=== PATIENT | male | born 1965 | race Caucasian/White ===

== ENCOUNTER 2020-08-18 18:33 | Inpatient (IN) | payer OTHER ==
[~2020-08-18] VITALS: Ht 177.8 cm; Wt 131.5 kg
[~2020-08-18 18:33] MED LIST: ADULT LOW DOSE81 MG PO; AMITRIPTYLINE H25 MG PO; ARMOUR THYROID60 MG PO; CALCIUM600 MG PO; DAILY MULTIPLE1 EACH PO; FENOFIBRATE160 MG PO; FISH OIL 1,0001 EAC1 PO; FISH OIL500 MG PO; GABAPENTIN300 MG PO; GLYBURIDE5 MG PO; HYDROCODON-ACE1 EA11 PO; IBUPROFEN200 MG PO; IBUPROFEN400 MG PO; JANUMET 50-5001 EACH; JANUMET 50-5001 EACH PO; JANUVIA100 MG PO; LIPITOR80 MG PO; LISINOPRIL5 MG PO; MELATONIN5 M2 PO; METFORMIN HCL1000 MG PO; METOPROLOL SUCC25 MG PO; METOPROLOL TART25 MG PO; NAPROXEN SODIU220 MG PO; NORCO 5-325 TA1 EACH PO; NORCO 7.5-3251 EACH PO; ONDANSETRON HCL4 MG PO; ONDANSETRON ODT4 MG SL; PERCOCET 5-3251 EACH PO; PYRIDIUM200 MG PO; SYNTHROID150 MCG PO; TRAMADOL HCL50 MG PO; VIAGRA100 MG PO; VITAMIN D250000 UNIT PO; VITAMIN D350000 UNIT PO; VITAMIN D5000 UNIT PO; ZETIA10 MG PO
--- NOTE | 2020-08-18 22:06 | NUR ---
2119 PATIENT ARRIVED TO THE UNIT. TRANSFERED INDEPENDENTLY TO THE BED. TOLERATING 2L NC. DRY COUGH NOTED, PATIENT REPORTS FEELING SOB WHEN COUGHING AND SLIGHT CHEST PAIN. OTHERWISE HE FEELS JUST TIRED. LUNG SOUNDS ARE CLEAR WITH SOME CRACKLES IN THE RLL. MD IN TO SEE PATIENT. RT SETTING UP CPAP. PATIENT FAILED ROOM AIR TRIAL AND KEPT ON 2L NC. PATIENT ASKING FOR FOOD. PROFESSIONAL SKATER CALLED.
--- NOTE | 2020-08-18 22:44 | NUR ---
PATIENT PROVIDED WITH FOOD. IV FLUIDS AND REMDESIVIR STARTED. PATIENT TOLERATING 2L NC. REQUESTING COUGH MEDICATIONS. NO OTHER NEEDS AT THIS TIME.
--- NOTE | 2020-08-19 | NUR ---
PATIENT UP TO THE BSC. VOIDS AND HAS LIQUID STOOL. PATIENT APPEARS MORE SOB WITH ACTIVITY. O2 SATS 86% ON 2L NC. SWITCHED TO CPAP ONCE IN BED WITH 4L BLEED IN. PATIENT RECOVERED AFTER SEVERAL MINS BUT WAS COUGHING FREQUENTLY. PATIENT TOLERATED CPAP FOR ABOUT 30 MINS THEN TOOK IT OFF. BACK TO 2L NC.
--- NOTE | 2020-08-19 02:00 | NUR ---
PATIENT UP TO BSC. TOTRATED TO 4L NC FOR ACTIVITY. PATIENT TOLERATED BETTER THIS TIME. VS STABLE. ORAL TEMP WNL. PATIENT DIAPHORETIC. TOWEL PROVIDED PER REQUEST. IV FLUIDS PER ORDER, SITE WNL. PATIENT CONTINUES TO HAVE DRY COUGH.
--- NOTE | 2020-08-19 03:15 | NUR ---
PATIENT [place] [facility] [place] LIMITED ASSSIT. PATIENT TOLERATED WELL. CONTINUES ON 4L NC. NO AGREEABLE TO USING CPAP AT THIS TIME.
--- NOTE | 2020-08-19 05:30 | NUR ---
PATIENT RESTING IN BED WATCHING TV. MORNING LABS DRAWN. PATIENT HAS BEEN UP INDEPENDENTLY TO THE [facility] TO VOID. GOOD URINE OUTPUT. CONTINUES TO BE SOB WITH ACTIVITY AND TACHYPNEIC, RR 30'S AT REST. 4L NC WITH O2 SATS LOW 90'S%. PATIENT REPORTS FEELING TIRED. DENIES PAIN OR GI UPSET. LOOKING FORWARD TO BREAKFAST. IV FLUIDS CONTINUE PER ORDER. CRACKLES NOTED IN CARLOS LOWER LOBES. NOTE SENT TO .
[2020-08-19] MEDS ORDERED: TRULICITY1.5 MG/0.5 SUB-Q (07:27)
[2020-08-19] MEDS ORDERED: VASCEPA1 GM PO (07:28)
[2020-08-19] MEDS ORDERED: FARXIGA10 MG PO (07:28)
[2020-08-19] MEDS ORDERED: LOSARTAN POTAS100 MG PO (07:29)
--- NOTE | 2020-08-19 09:05 | NUR ---
PT IS SLOW TO RESPOND BUT IS ALERT AND ORIENTED X3. HE WAS ABLE TO ORDER HIS OWN BREAKFAST AND SIT UP AT THE BEDSIDE TO EAT. HE IS ON 5L NASAL CANULA 94% SP02. WITH ACTIVITY 02 DECREASES BUT IT IS ABLE TO GO BACK TO NORMAL LIMITS QUIKLY. DOES NOT REPORT ANY PAIN OR NAUSEA AT THIS TIME. CALL LIGHT WITH IN REACH. PATIENT DESIRES A SHOWER LATER.
--- NOTE | 2020-08-19 11:26 | NUR ---
PATIENT CONTINUES TO PULL OFF CPAP MASK. O2 AT 4 L NC APPLIED. WILL CONTINUE TO MONITOR O2 SATS AND WORK OF BREATHING.
--- NOTE | 2020-08-19 11:37 | NUR ---
PT WAS ABLE TO AMBULATE TO THE BEDSIDE COMMODE AND VOID INDEPENDENTLY. PT WAS PROVIDED WITH SHAVING SUPPLIES TO PERFORM FACIAL CARE ON HIS OWN, WELL SHOWER SUPPLIES. HE IS ABLE TO AMBULATE TO THE RESTROOM ON HIS OWN. GIVEN VERBAL INSTRUCTIONS ON HOW TO USE THE CALL LIGHT IN THE SHOWER AND TO KEEP HIS NASAL CANULA ON AT ALL TIMES DURING HIS ACTIVITIES. NC IS AT 4L SP02 95%. LINENS CHANGED. PTS CLOTHES PLACED IN PERSONAL BELONGINGS BAG BY THE COUCH IN ROOM. IVS WERE COVERED WITH GLOVES AND COBAN TO PREVENT SOAKING WHILE IN THE SHOWER. PT WAS COOPERATIVE AND WAS VERBALLY INSTRUCTED TO LET US KNOW WHEN HE WAS HEADED BACK TO BED BY USING HIS CALL LIGHT. PT RESPONDED "OKAY".
--- NOTE | 2020-08-19 12:00 | NUR ---
PT FOUND BACK IN BED, DID NOT USE HIS CALL LIGHT TO ALERT US OF HIS SHOWER COMPLETION. PT FATIGUED AND INCREASED SOB AFTER SHOWER ACTIVITY. PT IS SITTING UP IN BED. NC 4L, SP02 AT 95%. PT WAS ABLE TO ORDER HIS LUNCH INDEPENDENTLY. PT ASKED TO WASH HIS HANDS AFTER REMOVAL OF GLOVES AND COBAN. HE STOOD UP AT THE SINK IN ROOM AND AMBULATED WELL BACK TO BED. CALL LIGHT WITHIN REACH. PT DENIES ANY PAIN OR NAUSEA AT THIS TIME. NO ADDITIONAL NEEDS AT THIS TIME.
--- NOTE | 2020-08-19 15:17 | EKG ---
[facility] [address] [facility] [place], [place] [address] Signed Normal sinus rhythm Normal ECG No previous ECGs available Confirmed by SHARRON CHILDERS DO ([id number]) on 08/19/2020 3:16:46 PM Electronically Signed By: SHARRON CHILDERS DO 08/19/20 1517 PATIENT NAME: HARPER MEYER Electrocardiogram DATE OF : 61 PHYSICIAN: SHARRON CHILDERS DO REPORT #: [id number] REPORT IS CONFIDENTIAL AND NOT TO BE RELEASED WITHOUT AUTHORIZATION
--- NOTE | 2020-08-19 17:45 | NUR ---
PT WAS ABLE TO AMBULATE INDEPENDENTLY DOWN THE HALLWAY, WHILE WEARING A MASK. SBA WITH STAFF IN FULL PPE GEAR DUE TO COVID PERCAUTIONS. PT HAD NC 5L WHILE WALKING DOWN THE HALLWAY TO VISIT HIS , AND ALSO WHILE IN HER BEDROOM AND BACK. PT WAS STEADY AND DID NOT SEEM TOO FATIGUED WHEN RETURNING BACK TO BED. INCREASED SOB BUT DECREASED AT REST. PT SEEMED MORE INTERACTIVE AND ENGAGED IN CONVERSATION. HE REPORTED A WORSENING COUGH, GAVE PRN MEDICATION FOR IT. PT IS SITTING AT BED SIDE. CALL LIGHT WITH IN REACH.
--- NOTE | 2020-08-19 19:01 | NUR ---
PT IS LAYING IN BED. NC 5L SP02 95%. PT WAS ABLE TO ORDER DINNER INDEPENDENTLY. DINNER PLACED ON BEDSIDE TABLE. DENIES ANY PAIN OR NAUSEA AT THIS TIME. COUGHING SYMPTOMS ARE STILL PRESENT, WAS NOTIFIED HIS NEXT PRN WOULD BE ADMINISTERED CLOSER TO 1999. PT IS ABLE TO AMBULATE TO BEDSIDE COMMODE AND VOID. NO ADDITIONAL NEEDS AT THIS TIME.
--- NOTE | 2020-08-19 20:00 | NUR ---
PUTTING CPAP ON FOR SLEEP.
--- NOTE | 2020-08-19 21:30 | NUR ---
02 NOT BLED INTO CPAP SO SATS DID DIP TO MID 80'S, 02 4 L NC PLACED AND SATS UP TO 90'S. ROBUTSSIN GIVEN FOR DRY COUGH. DID STAND AT BEDSIDE TO VOID AND MARISSA WELL. HE MEDS GIVEN.
--- NOTE | 2020-08-20 00:03 | NUR ---
SLEEPING WITH CPAP IN PLACE. SATS 88-92%.
--- NOTE | 2020-08-20 02:00 | NUR ---
PT CONT TO SLEEP WITH CPAP IN PLACE.
--- NOTE | 2020-08-20 03:35 | NUR ---
AWAKENED FROM DEEP SLEEP. SPOKE TO PT ABOUT REQUIRING 02 BEING BLED INTO CPAP. RR INCREASES WITH MILD EXERTION OF TURNING IN BED.
--- NOTE | 2020-08-20 05:55 | NUR ---
PT CONT TO SLEEP WITH CPAP WITH 4L [address] SATS 95%.
--- NOTE | 2020-08-20 07:14 | NUR ---
AWAKE, REQUESTING TO BE ON 02 NOW THAT IS OFF CPAP. ALSO GIVEN ROBITUSSIN PER REQUEST FOR DRY COUGH. STATES NEEDS TO BE DISCHARGED SOON, EXPLAINED WAS STILL REQUIRING OXYGEN AND BECAME SOB EASILY WITH EXERTION. ALSO REQUIRING 3 MORE DOSES OF REMDEISVER. PT SEEMED TO UNDERSTAND.
--- NOTE | 2020-08-20 09:00 | NUR ---
PT WAS ALERT AND LAYING IN BED. PT DOES NOT REPORT ANY PAIN OR NAUSEA. STATES HIS CAUGHING HAS IMPROVED BUT WOULD LIKE MEDICATION FOR IT WHEN POSSIBLE. PT WAS ABLE TO AMBULATE AND VOID AT THE BEDSIDE COMMODE, SLIGHT SOB AFTER ABULATORY ACTIVITY. PT SITTING UP AT BEDSIDE. CALL LIGHT WITHIN REACH.
--- NOTE | 2020-08-20 13:33 | NUR ---
PT IS SITTING UP AT THE BED. DOES NOT REPORT ANY PAIN OR NAUSEA. SLOW TO REPSOND BUT MORE ENGAGED IN CONVERSTATION. SPOKE TO ME ABOUT HIS DAUGHTER. STATED HIS HANDS HAVE BEEN DRY, HE WAS PROVIDED WITH LOTION. CALL LIGHT WITHIN REACH. ALL QUESTIONS ANSWERED.
--- NOTE | 2020-08-20 18:00 | NUR ---
PT IS AWAKE, AND SITTING AT THE BEDSIDE. PT DENIES ANY PAIN OR NAUSEA. PT ORDERED HIS DINNER INDEPENDENTLY. SLOW TO RESPOND. COUGH SYMPTOMS INCREASE WHEN TRYING TO HOLD CONVERSATION. PT IS ABLE TO AMBULATE AND VOID USING THE BEDSIDE COMMODE. CALL LIGHT WITHIN REACH.
--- NOTE | 2020-08-20 20:41 | NUR ---
WATCHING TV. NO C/O, BUT DID TAKE ROBITUSSIN FOR COUGH. HS MEDS GIVEN. CPAP READY FOR WHEN PATIENT USES IT FOR SLEEP
--- NOTE | 2020-08-20 23:13 | NUR ---
SLEEPING WITH CPAP IN PLACE. SAT 94%
--- NOTE | 2020-08-21 01:26 | NUR ---
SLEEPING WITH CPAP IN PLACE.
--- NOTE | 2020-08-21 04:31 | NUR ---
CONT TO SLEEP WITH CPAP IN PLACE. SAT 93%.
--- NOTE | 2020-08-21 05:00 | NUR ---
AWAKENS EASILY. HAS BEEN WEARING HOME CPAP WITH 02 BLED IN ALL NIGHT WITH SATS 93-95%. GETS UP TO VOID TO BSC ON OWN.
--- NOTE | 2020-08-21 09:00 | NUR ---
PT AWAKE IN BED THIS AM. PT C/O INCREASED COUGHING STATES IT "FEELS LIKE A TICKLE IN MY THROAT AND I JUST START HACKING". DENIES COUGHING UP SPUTUM. ROBITUSSIN GIVEN. CBG 272, 8 UNITS OF HUMALOG GIVEN, 3 SCHEDULED, 5 SLIDING SCALE. LUNG SOUNDS CLEAR BUL, DIMINISHED BLL. PT REPORTS FEELING SLIGHTLY SOB W/ EXERTION. RADIAL AND PEDAL PULSES +2. RFA AND LFA IV'S PATENT AND FLUSH WELL, NO REDNESS OR SWELLING AT SITE. CMP LAB DRAWN FROM RAC. PT INDEPENDENT IN ROOM AND ABLE TO STAND TO VOID IN BSC, EMPTIED OF 700 MLS URINE. VSS. CALL LIGHT IN REACH. BREAKFAST TRAY PROVIDED. PT WITHOUT FURTHER NEEDS AT THIS TIME.
[2020-08-21] MEDS ORDERED: VITAMIN D21250 MCG PO (10:28)
[2020-08-21] MEDS ORDERED: GLIMEPIRIDE4 MG PO (11:44)
[2020-08-21] MEDS ORDERED: PIOGLITAZONE HC30 MG PO (11:45)
[2020-08-21] MEDS ORDERED: ROPINIROLE HCL1 MG PO (11:45)
[2020-08-21] MEDS ORDERED: GLIPIZIDE5 MG PO (11:45)
[2020-08-21] MEDS ORDERED: ASPIRIN81 MG PO (11:54)
--- NOTE | 2020-08-21 11:54 | NUR ---
MED REC COMPLETE
--- NOTE | 2020-08-21 12:30 | NUR ---
CBG 267. SCHEDULED HUMALOG W/ MEALS INCREASED FROM [address] CHILDERS. TOTAL OF 11 UNITS OF HUMALOG GIVEN. BSC EMPTIED OF 225 MLS OF YELLOW URINE. PT BACK TO BED. PT EDUCATED ON SELF-PRONING AND HAS BEEN UNDERSTANDING, TOLERATING WELL. REMAINS ON 4 L NC SATING 92-94%. CALL LIGHT IN REACH. WATER REFRESHED. PT DENIES FURTHER NEEDS.
--- NOTE | 2020-08-21 13:54 | NUR ---
PATIENT NOT AVAILABLE FOR PHONE AT THIS TIME. WILL CHECK IN LATER.
--- NOTE | 2020-08-21 14:00 | NUR ---
O2 ALARMING. SATURATIONS 81%, PT UP TO BSC TO VOID AND NC IS OFF AND PT FEELS SOB. 4 L O2 VIA NC PUT BACK ON PT AND INSTRUCTED PT TO PRACTICE DEEP BREATHING. PT DENIES NEED, HE STATES BREATHING DEEPLY CAUSES HIM TO COUGH. PT REPORTS TESSLON PERLES GIVEN FOR HACKING COUGH EARLIER DOES NOT SEEM TO BE HELPING AND IS REQUESTING ROBITUSSIN, GIVEN. VSS. URINE OUTPUT IS QUATITY SUFFICIENT. PT IS GETTING PHONE CALL ON CELL AND DENIES FURTHER NEEDS. ICE WATER REFRESHED AND CALL LIGHT IN REACH.
--- NOTE | 2020-08-21 14:43 | NUR ---
DUE TO PRECAUTIONS, I AM UNABLE TO VISIT WITH PT AT THIS TIME. WILL CONTINUE TO FOLLOW
--- NOTE | 2020-08-21 15:21 | NUR ---
SPOKE WITH PATIENT BY PHONE. PATIENT IS VERY SOB AND COUGHS OFTEN. KEPT CONVERSATION SHORT. PATIENT LIVES WITH WHO IS ALSO ILL WITH COVID IN OUR CCU. THE HOME ALSO HAS OTHER ADULTS LIVING IN IT. 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 HE USES NO DME. HAS PCP. HE PLANS TO DISCHARGE BACK HOME. HIS MAIN CONCERN IS THAT HE MIGHT NEED FINANCIAL HELP HE WILL HAVE NO INCOME LONG HE CANNOT WORK. DISCUSSED I WILL LOOK INTO RESOURCES ABOUT THIS. PATIENT WAS COUGHING OFTEN BY THEN AND I LET HIM GO. I SPOKE WITH OUR CHW WHO STATES THERE MIGHT BE SOME RESOURCES AVAILABLE AND SHE WILL LOOK INTO IT TOMORROW. CM WILL CONTINUE TO FOLLOW.
--- NOTE | 2020-08-21 16:00 | NUR ---
PT STILL HAS DRY HACKING COUGH. NOT YET TIME FOR ROBMANDA OR NICKIE CONDE. OFFERED HOT TEA AND PT REFUSED SAYING HE DOES NOT LIKE WARM DRINKS. SCHEDULED GABAPENTIN GIVEN. PT DENIES PAIN OR NAUSEA. VSS. PT NOTIFIED HE WILL BE TRANSFERRING TO MED SURG ROOM 118. PT IS WITHOUT COMPLAINT. BELONGINGS PACKED AND LICENSE PUT IN HAT IN PT BELONGING BAG PER PT REQUEST. ASSESSMENT SHOWS NO ACUTE CHANGES FROM THIS MORNING. RR REMAIN AT 24 AND COUGH HAS SLIGHTLY IMPROVED W/ MEDICATIONS. REPORT CALLED TO [facility]ATION ASSISTANT.
--- NOTE | 2020-08-21 17:00 | NUR ---
PT TRANSFERED TO MED SURG UNIT VIA HOSPITAL BED WITH BELONGINGS IN HAND. VITALS TAKEN. ASSESSMENT COMPLETE, PT CONTINUES TO HAVE DRY COUGH PER REPORT FROM CCU. PT DEMONSTRATING FLAT AFFECT AND IRRITATION REGARDING "INCONVENIENCE" OF TRANSFER. ATTEMPTED TO REASSURE PT THAT TRANSFER FROM CCU MEANS IMPROVEMENT IN HIS CONDITION. REVIEWED PLAN OF CARE WITH PT. ORIENTED TO ROOM, CALL LIGHT IN REACH.
--- NOTE | 2020-08-21 17:51 | NUR ---
ACCUCHECK DONE, SS INSULIN AND SCHEDULED MEDICATIONS ADMINISTERED. DINNER ORDERED. ALL REQUESTS COMPLETED. PT REMAINS SLIGHTLY AGITATED AT THIS TIME. ALLOWED TO REST UNDISTURBED. CALL LIGHT IN REACH.
--- NOTE | 2020-08-21 18:20 | NUR ---
ROUNDED ON PATIENT, RESTING IN BED WATCHING TV. LEFT UNDISTURBED AT THIS TIME
--- NOTE | 2020-08-21 19:10 | NUR ---
REPORT RECEIVED FROM YOU ESPARZA. pt RESTING IN BED. 4L OXYGEN BY NC IN PLACE, SPO2 WNL. TELE 6 WITH CPOX ON.
--- NOTE | 2020-08-21 22:10 | NUR ---
pt AWAKE, RESTING IN BED, RR 24. SPO2 WNL WITH 4L OXYGEN BY NC IN PLACE. IV SITES FLUSHED WNL, IV REMDESIVIR INFUSING ORDERED. URINE EMPTIED FROM BSC. LUNG SOUNDS DIMINISHED THROUGHOUT ALL LOBES, ASSESSMENT COMPLETE. OCCASIONAL DRY COUGH, PRN COUGH MEDICATION ADMINISTERED REQUESTED BY PATIENT. CPAP APPLIED WITH 4L OXYGEN BY NC BLED IN. CALL LIGHT WITHIN REACH. ICE WATER PROVIDED.
--- NOTE | 2020-08-22 00:43 | NUR ---
pt RESTING IN BED. SPO2 91% WITH CPAP ON, 4L OXYGEN BLED IN. HR 56. CPOX IN PLACE.
--- NOTE | 2020-08-22 02:53 | NUR ---
CHECKED ON pt. RESTING IN BED WITH CPAP ON, 4L OXYGEN BLED IN . SPO2 93%. LIGHTS OFF IN ROOM.
--- NOTE | 2020-08-22 04:12 | NUR ---
SPO2 NOTED 83-85% ON TELE 6. OXYGEN TITRATED TO 6L BLED INTO CPAP. pt SLEEPING, BREATHING UNLABORED. SPO2 INCREASES TO 87-88%. RT DULCE IN ROOM TO ASSESS CPAP.
--- NOTE | 2020-08-22 06:00 | NUR ---
pt SLEEPING, AWAKENS TO VOICE. pt REQUESTING NC AT THIS TIME. 6L NC IN PLACE, SPO2 95%. AFEBRILE. SCHEDULED MEDICATION ADMINISTERED. URINE EMPTIED FROM BSC. ICE WATER PROVIDED. ASSESSMENT COMPLETE. CALL LIGHT IN REACH.
--- NOTE | 2020-08-22 06:30 | NUR ---
SPO2 85-88% WITH 6L OXYGEN BY NC IN PLACE. RT DULCE NOTIFIED, TO SWITCH PATIENT TO OXYMASK.
--- NOTE | 2020-08-22 06:45 | NUR ---
pt RESTED WELL THIS SHIFT. HOME CPAP IN PLACE, TITRATED TO 6L OXYGEN BLED IN TO MAINTAIN SATURATIONS >90%. INDEPENDENT TO BSC FOR QS VOIDS. IV SITES SL.
--- NOTE | 2020-08-22 07:28 | NUR ---
REPORT RECEIVED FROM SANDRA ORTA. PT RESTING IN BED WITH EYES CLOSED. LEFT UNDISTURBED AT THIS TIME. WILL CONTINUE PLAN OF CARE.
--- NOTE | 2020-08-22 08:00 | NUR ---
ACCUCHECK COMPLETE, PT CBG 271. BREAKFAST ORDER RECEIVED.
--- NOTE | 2020-08-22 08:50 | NUR ---
Scheduled medications administered, SS insulin given, PRN tylenol for "toothache type pain" and Robitussin for cough administered as well. Assessment complete, pt has coarse lung sounds and frequent shallow breaths, reporting SOB. On 6L of O2 via oxymask, switched to NC for breakfast. Pt SPO2 ranging from 90-95%. Dry, hacking nonproductive cough noted. Pt reports no other needs, call light in reach.
--- NOTE | 2020-08-22 10:15 | NUR ---
Rounded on patient, fresh water provided. No needs at this time.
--- NOTE | 2020-08-22 11:15 | NUR ---
Spoke with pt briefly. Feels he is doing better. Breathing is labored with [address] Plans on dc to home when treatment is complete.
--- NOTE | 2020-08-22 11:45 | NUR ---
CBG checked and SS and scheduled insulin administered. Pt had large BM in BSC. On 4L O2 via oxymask at this time, SPO2 93%. pt requests phone plugged in. States he will call dietary with lunch order when ready.
--- NOTE | 2020-08-22 14:17 | NUR ---
PT IS UNDER PRECAUTIONS, UNABLE TO VISIT IN PERSON. WILL TRY TO CONTAT BY PHONE
--- NOTE | 2020-08-22 14:35 | NUR ---
Vitals and I/O's completed. New IV started on R forearm as R hand IV leaking, IV medication due this evening. Assessment complete. Pt states not ready to order dinner yet.
--- NOTE | 2020-08-22 17:35 | NUR ---
Scheduled medications and SS insulin administered. Vitals and I/Os completed. Water and diet soda provided per pt request, he states he will call dietary with dinner order. Currently on 4L 02, SPO2 at 95%. Pt states no further needs at this time. Call light in reach
--- NOTE | 2020-08-22 19:15 | NUR ---
REPORT RECEIVED FROM OYU ESPARZA. COVID ISOLATION IN PLACE. SPO2 90% WITH 4L OXYGEN BY OXYMASK IN PLACE. ASSUMED CARE OF pt.
--- NOTE | 2020-08-22 20:10 | NUR ---
pt RESTING IN BED, SPO2 WNL WITH 4L OXYGEN BY OXYMASK IN PLACE. ASSESSMENT COMPLETE. LUNG SOUNDS DIMINISHED THROUGHOUT ALL LOBES, pt STATES "SOME SHORTNESS OF BREATH". BREATHING IS UNLABORED, RR 24 AT REST. URINE EMPTIED FROM BSC. ICE WATER PROVIDED. SCHEDULED MEDICATIONS ADMINISTERED. CALL LIGHT IN REACH. IV SITE FLUSHED AND IV REMDESIVIR INFUSING.
--- NOTE | 2020-08-22 21:13 | NUR ---
CALL LIGHT ANSWERED, IV REMDESIVIR COMPLETE. IV SL WNL. pt SITTING UP IN BED EATING FRUIT, OXYMASK ON HEAD, SPO2 88%. WITH 4L OXYGEN SPO2 INCREASES TO 95%. CALL LIGHT IN REACH. NO ADDITIONAL REQUESTS.
--- NOTE | 2020-08-22 22:37 | NUR ---
IN TO CHECK ON pt SPO2 DROPS TO 85% ON TELE 6 CPOX MONITOR. pt APPLYING CPAP AT THIS TIME WITH 6L OXYGEN BLED IN FOR SLEEP, SPO2 93%. pt TURNING LIGHTS OFF IN ROOM. CALL LIGHT IN REACH.
--- NOTE | 2020-08-23 00:58 | NUR ---
CHECKED ON pt. RESTING IN BED WITH HOME CPAP ON, 6L OXYGEN BLED IN, SPO2 92%. pt LYING ON BACK. LIGHTS OFF IN ROOM.
--- NOTE | 2020-08-23 03:21 | NUR ---
pt RESTING IN BED, HOME CPAP ON. SPO2 93% WITH 6L OXYGEN BLED INTO CPAP.
--- NOTE | 2020-08-23 05:35 | NUR ---
pt RESTED WELL THIS SHIFT. 6L OXYGEN BLED INTO HOME CPAP WITH SLEEP TO MAINTAIN SATURATIONS >92%. 4L OXYGEN BY OXYMASK WHILE AWAKE. TELE 6 CPOX ON. INDEPENDENT TO BSC. IV KAYCEE.
--- NOTE | 2020-08-23 06:12 | NUR ---
pt RESTING IN BED AWAKE. VSS. AFEBRILE. 4L OXYGEN BY OXYMASK IN PLACE. ASSESSMENT COMPLETE. LUNG SOUNDS COARSE RLL. pt WITH HACKING COUGH. PRN COUGH MEDICATION ADMINISTERED. URINE EMPTIED FROM BSC. TRAY TABLE CLEARED, TRASH EMPTIED. CALL LIGHT WITHIN REACH.
--- NOTE | 2020-08-23 07:30 | NUR ---
this rn received report from fabrizio fuller. pt appears to be resting with o2 noted on the monitor
--- NOTE | 2020-08-23 08:00 | NUR ---
THIS RN IN PT SROOM TO GET PTS BLOOD SUGAR, GIVE PT HIS MORNING MEDS AND DO PTS MORNING ASSESSMENT. PT SITTING UP ON EDGE OF BED AND STATES THAT HE IS DOING OKAY THIS AM. PT STATES THAT HE KEEPS HAVING COUGHING FITS. PT STATES THAT HE MIGHT BE GETTING DISCHARGED TODAY AND THAT HIS BOSS WANTS HIM BACK TO WORK ON FRIDAY- THIS RN DISCUSSED WITH PT HE MIGHT NEED TO QUARENTINE FOR LONGER THAN THAT. PT HAS NO OTHER CONCERNS AT [facility] TIME
--- NOTE | 2020-08-23 08:00 | NUR ---
Received 02 qualifier for Awaiting rx and note to send chart to [employer] for 02 delivery.
--- NOTE | 2020-08-23 09:10 | NUR ---
Left message for Rosemarie from [facility] and updated pt will be dicharging today along with his . Will now require 2 concentrators for the home. Spoke with Janna and she will pass infor along to Nyla.
--- NOTE | 2020-08-23 11:00 | NUR ---
Faxed face sheet, 02 qualifier, Rx for 02, H&P, and note from physician to [facility] for 02 concentrator. Called and spoke with Nyla. She did not receive previous message, but will call her test car driver for second concentrator as he had and extra with him. Spoke with Siva and updated 02 will be set up in the home and [facility] will bring portable 02 tank for use for pt to go home. Pt is awaiting to see Dr. Fraga. Updated he will be in shortly.
[2020-08-23] MEDS ORDERED: BENZONATATE100 MG PO (11:40)
[2020-08-23] MEDS ORDERED: DECADRON6 MG PO (11:41)
--- NOTE | 2020-08-23 13:51 | NUR ---
INFORMED PT IS TO DC TODAY, WILL WORK TO CONNECT DUE TO PRECAUTIONS
== END 2020-08-23 13:45 | disposition home or self-care (01) | DRG 177 ==
LOC: ED 18:33 → CCU 20:30 → MS 08-21 16:45
PROVIDERS: ADMIT Student in an Organized Health Care Education/Training Program; ATTEND Student in an Organized Health Care Education/Training Program
PROC: XW033E5 Introduction of Remdesivir Anti-infective into Peripheral Vein, Percutaneous Approach, New Technology Group 5 (ICD-10-PCS; principal; 2020-08-18)
PROC: 5A09357 Assistance with Respiratory Ventilation, Less than 24 Consecutive Hours, Continuous Positive Airway Pressure (ICD-10-PCS; 2020-08-19)
DX: U07.1 COVID-19 (principal); J12.82 Pneumonia due to coronavirus disease 2019; J12.81 Pneumonia due to SARS-associated coronavirus; J96.01 Acute respiratory failure with hypoxia; E11.649 Type 2 diabetes mellitus with hypoglycemia without coma; I10 Essential (primary) hypertension; E11.65 Type 2 diabetes mellitus with hyperglycemia; T38.0X5A Adverse effect of glucocorticoids and synthetic analogues, initial encounter; E66.9 Obesity, unspecified; E78.2 Mixed hyperlipidemia; G25.81 Restless legs syndrome; E03.9 Hypothyroidism, unspecified; G89.4 Chronic pain syndrome; Y92.239 Unspecified place in hospital as the place of occurrence of the external cause; Z87.442 Personal history of urinary calculi; Z79.899 Other long term (current) drug therapy; Z79.84 Long term (current) use of oral hypoglycemic drugs; Z79.82 Long term (current) use of aspirin
CPT/HCPCS: 71045; 80053; 81001; 83605; 85025; 85379; 94640; 94660; 94760; 94761; 97162; 99285-25; J1100; J1650; J1815; J7050; J7121; J8540; U0003

== ENCOUNTER 2022-03-26 09:55 | Day surgery (SDC) | payer OTHER ==
[~2022-03-26] VITALS: Ht 177.8 cm; Wt 152.3 kg
[~2022-03-26 09:55] MED LIST changes: +ASPIRIN81 MG PO; +BENZONATATE100 MG PO; +DECADRON6 MG PO; +FARXIGA10 MG PO; +GLIMEPIRIDE4 MG PO; +GLIPIZIDE5 MG PO; +LOSARTAN POTAS100 MG PO; +PIOGLITAZONE HC30 MG PO; +ROPINIROLE HCL1 MG PO; +TRULICITY1.5 MG/0.5 SUB-Q; +VASCEPA1 GM PO; +VITAMIN D21250 MCG PO
--- NOTE | 2022-03-26 11:33 | NUR ---
03/26/22 1133 Gail Teixeira 1125 PATIENT ARRIVES TO PACU SLEEPING. RESP EVEN AND UNLABORED, MASK AT 8 LITERS. 1127 PATIENT AWAKENS WITH VERBAL STIMULI. RESP EVEN AND UNLABORED, MASK OFF. 1130 PATIENT REPOSITIONS SELF TO BACK. AWAKE OFF/ON, BUT DROWSY.
--- NOTE | 2022-03-27 15:47 | OR ---
[facility] [address] [place], [place] [address] Signed DATE OF OPERATION: 03/26/2022 SURGEON: Apryl Oates MD PREOPERATIVE DIAGNOSIS: Colon screening. POSTOPERATIVE DIAGNOSIS: Normal colon to cecum. PROCEDURE: Total colonoscopy to cecum. ANESTHESIA: Intravenous sedation, propofol infusion; Barry Roy CRNA. INDICATIONS: This 56-year-old morbidly obese white male, BMI 47.8, is a patient of Dr. Calero. He underwent colonoscopy in 2013, which was said to be normal. He is quite obese at 333 pounds. He underwent cholecystectomy in the past as well as colonoscopy in [place] in 2002, which was said to be normal. He has no symptoms currently of bleeding, diarrhea or constipation. He has had other medical problems including need for BiPAP and ultimately CPAP device, diabetes mellitus, and history of myocardial infarction. He is admitted to undergo screening colonoscopy. He understands the risk of bleeding, infection, and perforation. Given his advanced ASA classification, propofol infusional sedation is recommended. FINDINGS: The prep was good. Complete colonoscopy was undertaken of the cecum. He had no polyps or diverticular formations that I could see. He had no colitis. DESCRIPTION OF PROCEDURE: The patient was brought to the endoscopy suite and placed in the lateral decubitus position, given intravenous sedation to the point of slurred speech and nystagmus. Propofol infusional technique was used by the short order fry cook. A digital rectal examination was found to be normal. An Olympus video colonoscope was passed in the rectum and manipulated throughout the colon ultimately intubating the cecum itself. The ileocecal valve and appendiceal orifice were normal. The scope was withdrawn from that point and examination throughout Electronically Signed By: APRYL OATES MD 03/27/22 1547 PATIENT NAME: HARPER MEYER OPERATIVE REPORT DATE OF : 61 REPORT #: [id number] PHYSICIAN: APRYL OATES MD PCP: YEISON CALERO MD REPORT IS CONFIDENTIAL AND NOT TO BE RELEASED WITHOUT AUTHORIZATION [facility] [address] [place], [place] [address] Signed showed no sign of diverticula, polyps, or other abnormality. Retroflexed view was normal as well. The scope was removed and the patient was taken to the recovery room in good condition. CONCLUDING DIAGNOSIS: Normal colon. No evidence of polyps. PLAN: Recommend repeat colonoscopy in 7 to 10 years, sooner if clinically indicated. He will return to the ongoing care of Dr. Yeison Calero. MD KARUNA Hogan/DARLINGL /[id number] cc: Yeison Calero MD Copies: YEISON CALERO MD ~ Electronically Signed By: APRYL OATES MD 03/27/22 1547 PATIENT NAME: HARPER MEYER OPERATIVE REPORT DATE OF : 61 REPORT #: [id number] PHYSICIAN: APRYL OATES MD PCP: YEISON CALERO MD REPORT IS CONFIDENTIAL AND NOT TO BE RELEASED WITHOUT AUTHORIZATION
== END 2022-03-26 12:00 | disposition home or self-care (01) ==
LOC: OPS 09:55 → DS 10:00 → OPS 10:45
PROVIDERS: ATTEND Surgery
PROC: 0DJD8ZZ Inspection of Lower Intestinal Tract, Via Natural or Artificial Opening Endoscopic (ICD-10-PCS; principal; 2022-03-26 10:45)
DX: Z12.11 Encounter for screening for malignant neoplasm of colon (principal); E66.01 Morbid (severe) obesity due to excess calories; Z68.42 Body mass index [BMI] 45.0-49.9, adult
CPT/HCPCS: J2704; J7121

== ENCOUNTER 2024-04-22 06:35 | Day surgery (SDC) | payer OTHER ==
[2024-04-05 08:35] VITALS: BP 110/67
[2024-04-08 07:09] VITALS: BP 143/69
[~2024-04-22] VITALS: Ht 177.8 cm; Wt 142.0 kg
[~2024-04-22 06:35] MED LIST changes: +CARAFATE1 GM PO; +CLOPIDOGREL75 MG PO; +IBLOOD GLUCOSE TEST STRIP 1 EA TEST VI PRN; +LACTATED RINGER'S 1,000 ML IV SCH; +LIDOCAINE HCL 1% 5 ML SDV INJ ONE; +MIDAZOLAM HCL 5 MG/5 ML VIAL IV PRN; +PANTOPRAZOLE SO40 MG PO; +PROTONIX40 MG PO; +VITAMIN B121000 MCG PO; +VITAMIN B12500 MCG PO; +fentaNYL citrate 100 MCG/2 ML VIAL IV PRN
[2024-04-22 06:50] VITALS: BP 148/59
[2024-04-22] MEDS ORDERED: LIDOCAINE HCL 1% 5 ML SDV INJ ONE (07:00)
[2024-04-22] MEDS ORDERED: IBLOOD GLUCOSE TEST STRIP 1 EA TEST VI PRN (07:00)
[2024-04-22] MEDS ORDERED: LACTATED RINGER'S 1,000 ML IV SCH (07:00)
[2024-04-22] MEDS ORDERED: propofoL 200 MG/20 ML VIAL ONE ×3 (08:13→08:37)
[2024-04-22] MEDS ORDERED: LIDOCAINE HCL 2% 5 ML SDV ONE (08:13)
[2024-04-22 09:21] VITALS: BP 141/61
--- NOTE | 2024-04-22 09:57 | OR ---
[facility] [address], [place] [address] Signed DATE OF OPERATION: 04/22/2024 SURGEON: Sasha Yañez MD PREOPERATIVE DIAGNOSES: 1. Gastric duodenal ulcers August 17, 2023. 2. Minimal distal esophagitis. 3. History of peptic ulcer disease. POSTOPERATIVE DIAGNOSIS: Stomach full of food. PROCEDURE: Esophagogastroduodenoscopy without biopsies. ESTIMATED BLOOD LOSS: None. 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 Apparently, he has had ulcers in the past. He said he has up to nine cardiac stents. He had cardiac stents placed eight months before coming to the office in January 2024. He also was using ibuprofen and ended up with a rather significant GI bleed. He went over to our [facility] where he spent an entire week. He is now off the aspirin and the NSAIDs. He has also had a history of a TIA. He is therefore back on his Plavix. The upper endoscopy revealed gastroduodenal ulcers. They are all less than or equal to 25 mm in diameter. They were more linear in the duodenum. He also had some minimal distal esophagitis. The consulting manager thought it would be paige to repeat the upper endoscopy in a week or so to make sure he is healing. He had been asked to see me as a local general surgeon here in [place], [place]. I had reviewed with him upper endoscopy. I gave him a pamphlet in that regard. He understands the nature of the test. There is risk including, but not limited to gas bloating, crampy abdominal pain, bleeding, perforation requiring surgery, and missed diagnosis. We do not need laxatives for upper endoscopies. He was thankful in that regard because he has been through several colonoscopies in his life. He on our preop sheet I had marked to stop Trulicity one week prior to the procedure. He stopped three days prior to the procedure but he stopped the Plavix 6 days prior to the procedure and sheet was marked for five days. He said he is no longer on the ibuprofen or aspirin. In addition, he is a very large man with significant sleep apnea requiring CPAP mask. He has a very round full face, heavy neck, chest and abdomen. Therefore, we asked for monitored anesthesia care Electronically Signed By: SASHA YAÑEZ MD 04/22/24 0957 PATIENT NAME: SALVADOR MEYER OPERATIVE REPORT DATE OF : 61 REPORT #: [id number] PHYSICIAN: SASHA YAÑEZ MD PCP: YEISON UGARTE MD REPORT IS CONFIDENTIAL AND NOT TO BE RELEASED WITHOUT AUTHORIZATION [facility] [address], [place] [address] Signed propofol infusion. He did require some preoperative blood work. We can see his renal function was off just a little bit. He is ever so slightly anemic. His mean cell volume is normal. He had expressed understanding and wished to proceed. He said his would take him home afterwards. DESCRIPTION OF PROCEDURE: Salvador was taken into our endoscopy suite and placed in a supine semi-recumbent position. A bite block was utilized for the case. He was given propofol infusion per our nurse foam cutting supervisor. The adult gastroscope was introduced and advanced under direct visualization of camera. As we entered the stomach over half of the stomach was full of half digested food. I made my way down to the proximal antrum. I could not see beyond that, but I could see the antrum, incisura and body of the stomach were unremarkable. Upon retroflexion of scope, I could see the cardia. He did not appear to have an obvious hiatal hernia. There was no blood in the stomach. The distal esophagus, middle esophagus, and upper esophagus were unremarkable. After this, the gas was suctioned out, the gastroscope removed. Salvador tolerated the procedure quite well. RECOMMENDATIONS: Salvador is welcome to call the office and reschedule his upper endoscopy. He might actually benefit from an entire day of clear liquid diet and even some laxatives to help clear his stomach. He has diabetes and on top of that he is using the Trulicity. Sasha Yañez MD ALB/MODL /[id number] cc: MD Yeison Jacobson MD Copies: SASHA YAÑEZ MD Electronically Signed By: SASHA YAÑEZ MD 04/22/24 0957 PATIENT NAME: SALVADOR MEYER OPERATIVE REPORT DATE OF : 61 REPORT #: [id number] PHYSICIAN: SASHA YAÑEZ MD PCP: YEISON UGARTE MD REPORT IS CONFIDENTIAL AND NOT TO BE RELEASED WITHOUT AUTHORIZATION [address] [address] Signed YEISON UGARTE MD ~ Electronically Signed By: SASHA YAÑEZ MD 04/22/24 0957 PATIENT NAME: SALVADOR MEYER ROYER OPERATIVE REPORT DATE OF : 61 REPORT #: [id number] PHYSICIAN: SASHA YAÑEZ MD PCP: YEISON UGARTE MD REPORT IS CONFIDENTIAL AND NOT TO BE RELEASED WITHOUT AUTHORIZATION
== END 2024-04-22 09:26 | disposition home or self-care (01) ==
LOC: DS 06:35
PROVIDERS: ATTEND Colon & Rectal Surgery
PROC: 0DJ08ZZ Inspection of Upper Intestinal Tract, Via Natural or Artificial Opening Endoscopic (ICD-10-PCS; principal; 2024-04-22 08:15)
DX: Z09 Encounter for follow-up examination after completed treatment for conditions other than malignant neoplasm (principal); E11.42 Type 2 diabetes mellitus with diabetic polyneuropathy; I25.10 Atherosclerotic heart disease of native coronary artery without angina pectoris; I25.2 Old myocardial infarction; I10 Essential (primary) hypertension; E78.5 Hyperlipidemia, unspecified; G47.33 Obstructive sleep apnea (adult) (pediatric); E03.9 Hypothyroidism, unspecified; D62 Acute posthemorrhagic anemia; E66.01 Morbid (severe) obesity due to excess calories; Z68.42 Body mass index [BMI] 45.0-49.9, adult; Z87.19 Personal history of other diseases of the digestive system; Z79.84 Long term (current) use of oral hypoglycemic drugs; Z79.890 Hormone replacement therapy; Z79.02 Long term (current) use of antithrombotics/antiplatelets; Z79.899 Other long term (current) drug therapy; Z95.5 Presence of coronary angioplasty implant and graft; Z90.49 Acquired absence of other specified parts of digestive tract; Z86.73 Personal history of transient ischemic attack (TIA), and cerebral infarction without residual deficits
CPT/HCPCS: 00731; J2003; J2704; J7121

== ENCOUNTER 2024-06-09 05:30 | Day surgery (SDC) | payer OTHER ==
[2024-05-31 09:30] VITALS: BP 110/62
[~2024-06-09] VITALS: Ht 177.8 cm; Wt 140.0 kg
[~2024-06-09 05:30] MED LIST changes: +FOLIC ACID0.4 MG PO; -IBLOOD GLUCOSE TEST STRIP 1 EA TEST VI PRN; -LACTATED RINGER'S 1,000 ML IV SCH; -LIDOCAINE HCL 1% 5 ML SDV INJ ONE; +NITROGLYCERIN0.4 MG SL
[2024-06-09 06:05] VITALS: BP 145/73
[2024-06-09] MEDS ORDERED: LIDOCAINE HCL 1% 5 ML SDV INJ ONE (07:00)
[2024-06-09] MEDS ORDERED: LACTATED RINGER'S 1,000 ML IV SCH (07:00)
[2024-06-09] MEDS ORDERED: IBLOOD GLUCOSE TEST STRIP 1 EA TEST VI PRN (07:00)
[2024-06-09] MEDS ORDERED: ENOXAPARIN SODIUM 40 MG/0.4 ML SYR SUB-Q SCH (07:00)
[2024-06-09] MEDS ORDERED: propofoL 200 MG/20 ML VIAL ONE (07:02)
--- NOTE | 2024-06-09 07:17 | NUR ---
PT NOT AVAILABLE FOR VISIT. PROVIDED PRAYER.
--- NOTE | 2024-06-09 07:42 | NUR ---
06/09/24 0742 Ranjana Capellan 0741-PATIENT ARRIVED TO PACU ON 8L MASK NONAROUSABLE LAYING SUPINE. ORAL AIRWAY IN PLACE. RR EVEN. SR. HR 60'S IVF INFUSING. PATIENT PLACED ON 6L MASK 100% ABDOMEN ROUND AND SOFT 9737-GLUCOSE LEVEL 108
[2024-06-09 08:11] VITALS: BP 135/77
--- NOTE | 2024-06-09 11:20 | OR ---
[facility] [address] [place], [place] [address] Signed DATE OF OPERATION: 06/09/2024 SURGEON: Sasha Yañez MD PREOPERATIVE DIAGNOSES: 1. Significant upper GI bleed with duodenal and antral ulcers in June of 2023. 2. Need for Plavix for his cardiac stents and transient ischemic attack. POSTOPERATIVE DIAGNOSES: 1. Moderate distal gastritis. 2. GE junction at 37 cm. PROCEDURE: EGD with CLOtest and multiple biopsies of the antrum. ESTIMATED BLOOD LOSS: None. INDICATIONS: Salvador is a 59-year-old obese diabetic gentleman with a history of severe sleep apnea and type 2 diabetes along with nine cardiac stents. Apparently, he has had a transient ischemic attack as well. It sounds like he has had an MA back in 2004. 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 He is on Plavix because of the TIA and the cardiac stents. He was taking a large amount of ibuprofen and ended up with a rather significant GI bleed. He was admitted to [facility]. He spent the entire week there. He is now off aspirin and NSAIDs. However, he needs to be maintained on the Plavix. The upper endoscopy revealed antral and duodenal ulcers. They were less than or equal to 25 mm in diameter. They were more or less linear in the duodenum. The religion teacher from our [facility] wanted to repeat the upper endoscopy in a few weeks to make sure everything continues to heal well. He had been asked to see me as a local general surgeon about an hour away. We brought him in a few weeks ago and unfortunately he had a lot of food in his antrum and I could not get through the antrum nor the pyloric channel. The proximal one-half of his stomach was unremarkable. We had reviewed this together in the office in followup. He actually volunteered to do a bowel prep to clean out his stomach and make sure the ulcers were healed. He told me this morning that he actually did two days of liquids and then did the bowel prep in the afternoon yesterday. He said it worked out very well. In the office, I once again gave him a brochure on upper endoscopy. We had reviewed it in detail. There is risk including, but not limited to gas bloating, crampy abdominal pain, bleeding, perforation requiring surgery, and missed diagnosis. Also because of his medical issues, his sleep Electronically Signed By: SASHA YAÑEZ MD 06/09/24 1120 PATIENT NAME: SALVADOR MEYER OPERATIVE REPORT DATE OF : 61 REPORT #: [id number] PHYSICIAN: SASHA YAÑEZ MD PCP: YEISON CALERO MD REPORT IS CONFIDENTIAL AND NOT TO BE RELEASED WITHOUT AUTHORIZATION [facility] [address] [place], [place] [address] Signed apnea, his body mass index, he requires monitored anesthesia care with propofol infusion. In that regard, he did require preoperative blood work and an EKG. He understands an adult person has to take him home afterwards. I also marked his preop sheet to hold the Plavix 5 days prior to the procedure. We had him hold the metformin this morning until after the procedure is completed. I had him hold Trulicity one week prior to the procedure. He had expressed understanding and wished to proceed. DESCRIPTION OF PROCEDURE: Salvador was taken into our endoscopy suite and placed in the supine semi-recumbent position. He was given monitored anesthesia care with propofol infusion per our nurse ribbon winder. A bite block was utilized for the case. The adult gastroscope was introduced and advanced under direct visualization of the camera without difficulty. His duodenum was unremarkable. The pyloric channel was unremarkable. We did take a single biopsy of the pyloric channel for pathologic review. In his antrum right in front of the opening the pylorus, he has several areas of moderate gastritis. No ulcerations. We took four biopsies in these areas for pathologic review. We took an additional biopsy of the antrum for CLOtest. Again, the proximal one-half of the stomach is unremarkable. Upon retroflexion of the scope, I really do not see an obvious hiatal hernia. The scope was withdrawn up through the area of the GE junction, which was compliant without stricture. I did not see any gastric or esophageal varices. The GE junction is right about 37 cm. No distal esophagitis. The middle and upper esophagus were unremarkable. After this, the gas was suctioned out and the gastroscope removed. Salvador tolerated the procedure quite well. RECOMMENDATIONS: I will see Salvador back in my office in 7 to 14 days to review his results. It looks like he should stay on the Protonix for now. We will resume his Plavix in four days. We did give him some Lovenox this morning. He will always need monitored anesthesia care in the future. Sasha Yañez MD ALB/MODL /[id number] cc: Sasha Yañez MD Electronically Signed By: SASHA YAÑEZ MD 06/09/24 1120 PATIENT NAME: SALVADOR MEYER OPERATIVE REPORT DATE OF : 61 REPORT #: [id number] PHYSICIAN: SASHA YAÑEZ MD PCP: YEISON CALERO MD REPORT IS CONFIDENTIAL AND NOT TO BE RELEASED WITHOUT AUTHORIZATION [address] [address] Signed Yeison Calero MD Copies: SASHA YAÑEZ MD, RUSSEL J MD ~ Electronically Signed By: SASHA YAÑEZ MD 06/09/24 1120 PATIENT NAME: SALVADOR MEYER OPERATIVE REPORT DATE OF : 61 REPORT #: [id number] PHYSICIAN: SASHA YAÑEZ MD PCP: YEISON CALERO MD REPORT IS CONFIDENTIAL AND NOT TO BE RELEASED WITHOUT AUTHORIZATION
--- NOTE | 2024-06-10 10:44 | PATH ---
[facility] [address] [place], [place] [address] Signed SPECIMEN(S): A ESOPHAGEAL BIOPSY SPECIMEN(S): B ANTRUM BIOPSY SPECIMEN SOURCE: A. ESOPHAGEAL BIOPSY B. ANTRUM BIOPSY CLINICAL HISTORY: Peptic ulcer disease, post: Distal gastritis. FINAL PATHOLOGIC DIAGNOSIS: A. Esophagus, biopsy: - Fragment of duodenal mucosa with no significant pathologic changes, see comment B. Stomach, antrum, biopsy: - Gastric antral mucosa with reactive gastropathy and features of a hyperplastic polyp - Negative for Helicobacter pylori with HE stains COMMENT: For part A, the specimen is designated "esophageal biopsy" on the specimen label and surgical requisition, however the specimen material is consistent with duodenum. Correlation with intraprocedural information is needed to resolve this discrepancy. [facility] MICROSCOPIC EXAMINATION: Histologic sections of all submitted blocks are examined by light microscopy. These findings, together with the gross examination, support the pathologic diagnosis. GROSS DESCRIPTION: A. The specimen, labeled and designated "ShaunMatilde clifford, esophageal biopsy," is received in formalin and consists of one loaiza soft tissue fragment, 0.5 cm. Entirely submitted in (A1). B. The specimen, labeled and designated "ShaunMatilde clifford, antrum biopsy," is received in formalin and consists of four loaiza soft tissue fragments, ranging from 0.3-0.6 cm. Entirely submitted in (B1). AB (under the direct supervision of a pathologist) The Gross Description was prepared using a voice recognition system. The report was reviewed for accuracy; however, sound-alike word errors, addition and/or PATIENT NAME: HARPER MEYER PATHOLOGY DATE OF : 61 REPORT #: [id number] PHYSICIAN: JEANETTE SLATER PCP: YEISON UGARTE MD REPORT IS CONFIDENTIAL AND NOT TO BE RELEASED WITHOUT AUTHORIZATION [facility] [address] [place], [place] [address], [place] [address] Signed deletions may occur. If there is any question about this report, please contact Client Services. ADDITIONAL NOTES: Immunohistochemical and/or in situ hybridization studies if performed in this case included appropriate positive controls that reacted as expected. This test was developed and its performance characteristics determined by [facility]. It has not been cleared or approved by the U.S. Food and Drug Administration. The FDA has determined that such clearance or approval is not necessary. This test is used for clinical purposes. It should not be regarded as investigational or for research. [facility] is certified under the Clinical Laboratory Improvement Amendments of 1988 (CLIA) as qualified to perform high complexity clinical laboratory testing. PERFORMING LABORATORY: Technical component was performed by [facility], [address] [place] [address] (CLIA# [id number]). Professional interpretation was performed by [facility] - [facility], [address] [place] [address] (CLIA#: [id number]). Diagnostician: Juan Jose Reeyz MD Pathologist Electronically Signed 06/10/2024 Copies: ~ PATIENT NAME: HARPER MEYER PATHOLOGY DATE OF : 61 REPORT #: [id number] PHYSICIAN: JEANETTE SLATER PCP: YEISON UGARTE MD REPORT IS CONFIDENTIAL AND NOT TO BE RELEASED WITHOUT AUTHORIZATION
== END 2024-06-09 08:20 | disposition home or self-care (01) ==
LOC: DS 05:30
PROVIDERS: ATTEND Colon & Rectal Surgery
PROC: 0DB68ZX Excision of Stomach, Via Natural or Artificial Opening Endoscopic, Diagnostic (ICD-10-PCS; principal; 2024-06-09 07:30)
DX: K29.70 Gastritis, unspecified, without bleeding (principal); I10 Essential (primary) hypertension; I25.10 Atherosclerotic heart disease of native coronary artery without angina pectoris; E11.40 Type 2 diabetes mellitus with diabetic neuropathy, unspecified; E03.9 Hypothyroidism, unspecified; I25.2 Old myocardial infarction; G25.81 Restless legs syndrome; E66.01 Morbid (severe) obesity due to excess calories; E78.2 Mixed hyperlipidemia; E66.9 Obesity, unspecified; Z68.41 Body mass index [BMI] 40.0-44.9, adult; Z99.89 Dependence on other enabling machines and devices
CPT/HCPCS: 00731; 36415; 87077; J1650; J2704; J7121